=== PATIENT | female | born 1975 | race Hispanic/Latino ===

== ENCOUNTER 2019-09-03 14:49 | Emergency (ER) | payer SELFPAY ==
[2019-09-03 16:51] VITALS: BP 148/81
--- NOTE | 2019-09-03 16:52 | Event Note ---
ED Screening Note Date of service: 09/03/19 Time: 16:49 ED Screening Note: 44 yo morbidly obese female slipped and fell at [employer] @ 2pm today. Denies head trauma. No LOC, C/o left shoulder, right hip and right lower leg pain. Reports hx of chronic back pain. She ambulates with quad cane. This initial assessment/diagnostic orders/clinical plan/treatment(s) is/are subject to change based on patients health status, clinical progression and re- assessment by fellow clinical providers in the ED. Further treatment and workup at subsequent clinical providers discretion. Patient/guardian urged not to elope from the ED as their condition may be serious if not clinically assessed and master holden. Initial orders include:
[2019-09-03] MEDS ORDERED: KETOROLAC 30 MG/1 ML INJ IM ONE (18:06)
--- NOTE | 2019-09-03 18:10 | Emergency Department Report ---
ED Fall HPI - General Chief Complaint: Fall Stated Complaint: BODY INJURY/FALL Time Seen by Provider: 09/03/19 16:48 Source: patient Mode of arrival: Ambulatory Limitations: No Limitations - History of Present Illness MD Complaint: fall - Related Data Allergies Allergy/AdvReac Type Severity Reaction Status Date / Time codeine Allergy Angioedema Verified 09/03/19 14:52 ED Review of Systems ROS: Stated complaint: BODY INJURY/FALL Other details as noted in HPI ED Past Medical Hx - Past Medical History Previous Medical History?: Yes Hx Diabetes: Yes Additional medical history: PCOS - Surgical History Past Surgical History?: Yes Hx Cholecystectomy: Yes (2004) - Social History Smoking Status: Never Smoker Substance Use Type: None ED Physical Exam - General Limitations: No Limitations ED Course Vital Signs 09/03/19 16:48 Temperature 98.2 F Pulse Rate 98 H Respiratory 20 Rate Blood Pressure 148/81 O2 Sat by Pulse 95 Oximetry Critical care attestation.: If time is entered above; I have spent that time in minutes in the direct care of this critically ill patient, excluding procedure time. ED Disposition Condition: Stable
--- NOTE | 2019-09-03 19:52 | XRay Report ---
BILATERAL HIPS 3 VIEWS INDICATION / CLINICAL INFORMATION: hip pain s/p fall. COMPARISON: None available. FINDINGS: Surgical screws are seen in the proximal left femur. Mild degenerative changes seen in both hips. No other significant skeletal abnormality. Signer Name: Roverto Kaur MD FACR Signed: 09/03/2019 7:47 PM Workstation Name: [id number]
--- NOTE | 2019-09-03 19:58 | Emergency Department Report ---
ED Fall HPI - General Chief Complaint: Fall Stated Complaint: BODY INJURY/FALL Time Seen by Provider: 09/03/19 16:48 Source: patient Mode of arrival: Ambulatory - History of Present Illness Initial Comments: 44-year-old obese female presents to the emergency room complaining of left shoulder pain and right side hip and pelvic pain after she slipped on a wet floor and suffered a ground-level fall while at [employer]. Patient denies hitting her head and denies loss of consciousness. Patient has a history of diabetes and SANYA SCarl ALVES Complaint: fall -: This afternoon Fall From: standing When Fall Occurred: 1-3 hours [employer] Fall Witnessed: yes, by family Place Fall Occurred: other ([employer]) Loss of Consciousness: none Prolonged Down Time?: no Location - Extremities: Left: Shoulder, Right: Thigh Severity scale (0 -10): 7 Quality: sharp, aching Context: tripped/slipped Associated Symptoms: denies - Related Data Previous Rx's Medication Instructions Recorded Last Taken Type Meloxicam [Mobic] 15 mg PO QDAY #20 tablet 09/03/19 Unknown Rx Allergies Allergy/AdvReac Type Severity Reaction Status Date / Time codeine Allergy Angioedema Verified 09/03/19 14:52 ED Review of Systems ROS: Stated complaint: BODY INJURY/FALL Other details as noted in HPI Comment: All other systems reviewed and negative ED Past Medical Hx - Past Medical History Previous Medical History?: Yes Hx Diabetes: Yes Additional medical history: PCOS - Surgical History Past Surgical History?: Yes Hx Cholecystectomy: Yes (2004) - Social History Smoking Status: Never Smoker Substance Use Type: None - Medications Home Medications: Home Medications Medication Instructions Recorded Confirmed Last Taken Type Meloxicam [Mobic] 15 mg PO QDAY #20 tablet 09/03/19 Unknown Rx ED Physical Exam - General Limitations: No Limitations General appearance: alert, in no apparent distress, obese - Head Head exam: Present: atraumatic, normocephalic - Eye Eye exam: Present: normal appearance - ENT ENT exam: Present: mucous membranes moist - Expanded Upper Extremity Exam Left Shoulder Exam: Present: full ROM, tenderness. Absent: swelling, abrasion - Expanded Lower Extremity Exam Right Hip exam: Present: tenderness. Absent: swelling Knee exam: Present: normal inspection, full ROM, tenderness Neuro vascular tendon exam: Present: no vascular compromise - Neurological Exam Neurological exam: Present: alert, oriented X3 - Psychiatric Psychiatric exam: Present: normal affect, normal mood - Skin Skin exam: Present: warm, dry, intact, normal color. Absent: rash ED Course Vital Signs 09/03/19 16:48 Temperature 98.2 F Pulse Rate 98 H Respiratory 20 Rate Blood Pressure 148/81 O2 Sat by Pulse 95 Oximetry ED Medical Decision Making - Radiology Data Radiology results: report reviewed Patient: RITU GRANT MR#: [id number] : 1975 Acct:[id number] Age/Sex: 44 / F ADM Date: 09/03/19 Loc: ED Attending Dr: Ordering Physician: PATTIE GAN Date of Service: 09/03/19 Procedure(s): XR hips BILAT 2V w/pelvis Accession Number(s): [id number] cc: PATTIE GAN Fluoro Time In Minutes: BILATERAL HIPS 3 VIEWS INDICATION / CLINICAL INFORMATION: hip pain s/p fall. COMPARISON: None available. FINDINGS: Surgical screws are seen in the proximal left femur. Mild degenerative changes seen in both hips. No other significant skeletal abnormality. Signer Name: Roverto Kaur MD FACR Signed: 09/03/2019 7:47 PM Workstation Name: [id number] Transcribed By: MS Dictated By: Roverto Kaur MD Electronically Authenticated By: Roverto Kaur MD Signed Date/Time: 09/03/191946 DD/ 46 TD/TT: - Medical Decision Making 44-year-old obese female presents to the emergency room complaining of left shoulder pain and right side hip and pelvic pain after she slipped on a wet floor and suffered a ground-level fall while at [employer]. Patient denies hitting her head and denies loss of consciousness. Patient has a history of diabetes and PCO S. Critical care attestation.: If time is entered above; I have spent that time in minutes in the direct care of this critically ill patient, excluding procedure time. ED Disposition Clinical Impression: Fall Disposition: DC-01 TO HOME OR SELFCARE Is pt being admited?: No Does the pt Need Aspirin: No Condition: Stable Instructions: Fall Prevention (ED) Prescriptions: Meloxicam [Mobic] 15 mg PO QDAY #20 tablet Referrals: DAMIAN FRANK MD [Staff Physician] - 3-5 Days Forms: Work/School Release Form(ED)
== END 2019-09-03 20:15 | disposition home or self-care (01) ==
LOC: ED 14:49
DX: M25.512 Pain in left shoulder (principal); M25.551 Pain in right hip; R10.2 Pelvic and perineal pain; W01.0XXA Fall on same level from slipping, tripping and stumbling without subsequent striking against object, initial encounter; Y93.89 Activity, other specified; Y92.89 Other specified places as the place of occurrence of the external cause; Y99.8 Other external cause status
CPT/HCPCS: 73521; 96372; 99283; J1885